=== PATIENT | male | born 1950 | race Caucasian/White ===

== ENCOUNTER 2022-10-05 10:23 | Outpatient (CLI) | payer MEDICARE, BC, SELFPAY ==
--- NOTE | 2022-10-05 09:00 | DI.RAD_ITS ---
Exam(s) XR KNEE RT 3V AP,LAT,CORRINE EXAM: XR KNEE RT 3V AP,LAT,CORRINE CLINICAL HISTORY: right knee DJD. TECHNIQUE: 2D digital imaging was performed. Three views. COMPARISON: [facility]TH[facility] KNEE SOREN 4+VIEWS from 09/26/2020 FINDINGS: There is severe narrowing of the medial femoral tibial joint space, with a [id number] appearance. There is some flattening of the medial femoral condyle. This causes varus angulation at the knee. P rominent periarticular spurring. There is a bony density seen posteriorly which could represent a lo ose body. There is also prominent spurring at the patellofemoral joint. IMPRESSION: Severe degenerative changes of the medial femoral tibial joint. DATA REPOSITORY: RADIATION DOSE DELIVERED:
--- NOTE | 2022-10-05 09:00 | DI.RAD_ITS ---
Exam(s) XR KNEE LT 3V AP,LAT,CORRINE EXAM: XR KNEE LT 3V AP,LAT,CORRINE CLINICAL HISTORY: left knee DJD. TECHNIQUE: 2D digital imaging was performed. Three views. COMPARISON: CR ORTHO KNEE SOREN 4+VIEWS from 09/26/2020 FINDINGS: There are severe degenerative changes of the medial femoral tibial joint, with a [id number] appeara nce. Prominent periarticular spurring is noted throughout. There is varus angulation. IMPRESSION: Severe degenerative changes of the medial femoral tibial joint. DATA REPOSITORY: RADIATION DOSE DELIVERED:
== END 2022-10-05 10:24 | disposition home or self-care (01) ==
LOC: DIORS 10:23
PROVIDERS: PCP Internal Medicine; Referring Provider Internal Medicine; Visit Provider Student in an Organized Health Care Education/Training Program
DX: M17.0 Bilateral primary osteoarthritis of knee
CPT/HCPCS: 20610; 73562; 99203; J1040

== ENCOUNTER → 2023-10-22 08:49 | Outpatient (BNVA) | payer MEDICARE, BC, SELFPAY | PROVIDERS: PCP Internal Medicine; Referring Provider Internal Medicine | DX: M17.11 Unilateral primary osteoarthritis, right knee (principal); M17.12 Unilateral primary osteoarthritis, left knee | CPT/HCPCS: 20610; J1010 ==

== ENCOUNTER 2023-11-24 03:01 | Outpatient (CLI) | payer MEDICARE, BC, SELFPAY ==
[2023-11-24 13:13] LABS: Abs Immature Grans 0.02 10^3/uL (0.0-0.06); Absolute Eosinophil Count 0.04 10^3/uL (0.0-0.7); Absolute Lymphocyte Count 0.54 10^3/uL (1.2-3.4); Absolute Monocyte Count 0.68 10^3/uL (0.1-0.8); Basophils % 1.8 %; Eosinophils % 0.7 %; HCT 35.9 % (40.0-50.0); HGB 12.5 g/dL (13.5-17.5); Immature Grans % 0.4 %; Lymphocytes % 9.7 %; MCH 33.8 pg (27.0-33.0); MCHC 34.8 % (32.0-36.0); MCV 97 fL (80-95); MPV 9.6 fL (8.0-11.0); Monocytes % 12.2 %; Neutrophils % 75.2 %; Platelet Count 161 10^3/uL (130-400); RDW 13.4 % (11.8-14.1); RDW-SD 47.1 fL; WBC 5.58 10^3/uL (4.4-10.8)
[2023-11-24 14:01] LABS: ALT 27 U/L (16-63); AST 23 U/L (15-37); Alkaline Phosphatase 123 U/L (46-116); Anion Gap 5.1 mmol/L (3-11); BUN 13 mg/dL (7-18); Bilirubin, Total 0.58 mg/dL (0.2-1.0); CO2 31.9 mmol/L (21.0-32.0); CREATININE 0.9 mg/dL (0.70-1.30); Chloride 103 mmol/L (98-107); Estimated GFR 89.62 (mL/min/1.73m2); Glucose 86 mg/dL (74-106); Potassium 4.1 mmol/L (3.5-5.1); Sodium 140 mmol/L (136-145); Total Protein 6.5 g/dL (6.4-8.2)
[2023-11-25 10:18] LABS: IgA <13 mg/dL (85-499); IgG 943 mg/dL (610-1616); IgM 21 mg/dL (35-242); Kappa Free Light Chain 0.72 mg/dL (0.33-1.94); Lambda Free Light Chain <0.44 mg/dL (0.57-2.63)
[2023-11-25 13:14] LABS: Albumin 63.9 % (55.8-66.1); Monoclonal Spike 4.3 % (None Seen); Monoclonal Spike g/dL 0.3 g/dL (None Seen); Total Protein 6.2 g/dL (6.3-8.2)
[2023-11-25 16:12] LABS: Comment (See Note)
== END 2023-11-24 03:02 | disposition home or self-care (01) ==
LOC: LBO 03:01
PROVIDERS: PCP Internal Medicine; Visit Provider Internal Medicine Hematology & Oncology
DX: C90.00 Multiple myeloma not having achieved remission (principal)
CPT/HCPCS: 36415; 80053; 82784; 83883; 84165; 85025

== ENCOUNTER 2023-12-01 03:46 | Outpatient (CLI) | payer MEDICARE, BC, SELFPAY ==
[2023-12-01 12:28] LABS: Abs Immature Grans 0.03 10^3/uL (0.0-0.06); Absolute Basophil Count 0.05 10^3/uL (0.0-0.2); Absolute Eosinophil Count 0.13 10^3/uL (0.0-0.7); Absolute Lymphocyte Count 0.34 10^3/uL (1.2-3.4); Absolute Monocyte Count 0.36 10^3/uL (0.1-0.8); Absolute Neutrophil Count 2.92 10^3/uL (1.2-6.7); Basophils % 1.3 %; Eosinophils % 3.4 %; HCT 36.4 % (40.0-50.0); HGB 12.3 g/dL (13.5-17.5); Immature Grans % 0.8 %; Lymphocytes % 8.9 %; MCH 33.5 pg (27.0-33.0); MCHC 33.8 % (32.0-36.0); MCV 99 fL (80-95); MPV 10.1 fL (8.0-11.0); Monocytes % 9.4 %; Neutrophils % 76.2 %; Platelet Count 122 10^3/uL (130-400); RBC 3.67 10^6/uL (4.36-5.78); RDW 13.8 % (11.8-14.1); RDW-SD 50.3 fL; WBC 3.83 10^3/uL (4.4-10.8)
[2023-12-01 13:38] LABS: ALT 25 U/L (16-63); AST 18 U/L (15-37); Albumin 3.7 g/dL (3.4-5.0); Alkaline Phosphatase 100 U/L (46-116); Anion Gap 5.1 mmol/L (3-11); BUN 12 mg/dL (7-18); Bilirubin, Total 0.66 mg/dL (0.2-1.0); CO2 32.9 mmol/L (21.0-32.0); CREATININE 0.9 mg/dL (0.70-1.30); Calcium 8.9 mg/dL (8.5-10.1); Chloride 101 mmol/L (98-107); Estimated GFR 89.62 (mL/min/1.73m2); Glucose 89 mg/dL (74-106); Potassium 4.2 mmol/L (3.5-5.1); Sodium 139 mmol/L (136-145); Total Protein 6.3 g/dL (6.4-8.2)
[2023-12-02 10:09] LABS: IgA <13 mg/dL (85-499); IgG 518 mg/dL (610-1616); IgM 21 mg/dL (35-242); Kappa Free Light Chain 0.84 mg/dL (0.33-1.94); Lambda Free Light Chain <0.44 mg/dL (0.57-2.63)
[2023-12-02 13:50] LABS: Albumin 62.5 % (55.8-66.1); Albumin g/dL 3.9 g/dL (3.6-5.2); Comment (See Note); Monoclonal Spike 4.5 % (None Seen); Monoclonal Spike g/dL 0.3 g/dL (None Seen); Total Protein 6.2 g/dL (6.3-8.2)
== END 2023-12-01 03:47 | disposition home or self-care (01) ==
LOC: LBO 03:47
PROVIDERS: PCP Internal Medicine; Visit Provider Internal Medicine Hematology & Oncology
DX: C90.00 Multiple myeloma not having achieved remission (principal)
CPT/HCPCS: 36415; 80053; 82784; 83883; 84165; 85025

== ENCOUNTER → 2024-01-18 08:28 | Outpatient (BNVA) | payer MEDICARE, BC, SELFPAY | PROVIDERS: PCP Internal Medicine; Referring Provider Internal Medicine; Visit Provider Nurse Practitioner Gerontology | DX: N40.1 Benign prostatic hyperplasia with lower urinary tract symptoms (principal); N13.8 Other obstructive and reflux uropathy; R97.20 Elevated prostate specific antigen [PSA]; C90.00 Multiple myeloma not having achieved remission | CPT/HCPCS: 51798; 81003; 99215 ==

== ENCOUNTER → 2024-02-11 10:50 | Outpatient (BNVA) | payer MEDICARE, BC, SELFPAY | PROVIDERS: PCP Internal Medicine; Referring Provider Internal Medicine | DX: M17.0 Bilateral primary osteoarthritis of knee (principal) | CPT/HCPCS: 20610; J1010 ==

== ENCOUNTER → 2024-07-18 09:27 | Outpatient (BNVA) | payer MEDICARE, BC, SELFPAY | PROVIDERS: PCP Internal Medicine; Referring Provider Internal Medicine; Visit Provider Nurse Practitioner Gerontology | DX: N40.1 Benign prostatic hyperplasia with lower urinary tract symptoms (principal); N13.8 Other obstructive and reflux uropathy; R97.20 Elevated prostate specific antigen [PSA] | CPT/HCPCS: 99214 ==

== ENCOUNTER 2024-08-22 12:44 | Outpatient (CLI) | payer MEDICARE, BC, SELFPAY ==
--- NOTE | 2024-08-22 | DI.MRI_ITS ---
Exam(s) MR ABDOMEN WO EXAM: MR ABDOMEN WO CLINICAL HISTORY: ? Gallstones, choledocholithiasis TECHNIQUE: Multiplanar multisequence MRI of the Abdomen was performed. COMPARISON: No exams were available for comparison FINDINGS: Lung bases: Unremarkable. Liver: No suspicious hepatic masses are present. There is normal signal seen in the liver. Pancreas: There is no evidence of a pancreatic mass. No peripancreatic fluid collections are seen. Gallbladder and Bile Ducts: The gallbladder is distended measuring 5.1 cm in diameter. There is no w all thickening or pericholecystic fluid. The common duct measures 1.0 cm. There is a 3 mm filling d efect centered within the common bile duct on the axial T2 images. It is not identified on the coron al images. This likely reflects a flow artifact. This is not seen on the MRCP images. Adrenals: No suspicious adrenal mass is seen. Kidneys: There are bilateral simple renal cysts. The largest is on the left kidney and measures 2.9 cm. No follow-up is recommended. No suspicious renal masses are seen. Spleen: Unremarkable. Bowel: Unremarkable. No evidence of bowel wall thickening or obstruction is seen. Aorta: Unremarkable. Soft Tissues: There is a tiny fat containing umbilical hernia. Bone: Unremarkable. Lymph Nodes: Unremarkable. IMPRESSION: 1. No definite evidence of choledocholithiasis. 2. There is a rounded low signal intensity defects seen centered in the common duct (series [id number], maribell ge [id number]). It is not seen on the MRCP images or the coronal T2 images and likely reflects a flow artifa ct. 3. Distended gallbladder. No gallbladder wall thickening or pericholecystic fluid. 4. The common duct measures 1 cm in size. No evidence of a pancreatic mass. DATA REPOSITORY:
== END 2024-08-22 13:04 ==
PROVIDERS: PCP Internal Medicine; Visit Provider Internal Medicine
DX: K80.80 Other cholelithiasis without obstruction (principal)
CPT/HCPCS: 74181

== ENCOUNTER → 2024-09-28 10:50 | Outpatient (BNVA) | payer MEDICARE, BC, SELFPAY | PROVIDERS: PCP Internal Medicine; Referring Provider Internal Medicine; Visit Provider Physician Assistant | DX: M17.0 Bilateral primary osteoarthritis of knee (principal) | CPT/HCPCS: 20610; J1010 ==

== ENCOUNTER → 2025-01-16 10:22 | Outpatient (BNVA) | payer MEDICARE, BC, SELFPAY | PROVIDERS: PCP Internal Medicine; Visit Provider Nurse Practitioner Gerontology | DX: N40.1 Benign prostatic hyperplasia with lower urinary tract symptoms (principal); N13.8 Other obstructive and reflux uropathy; R97.20 Elevated prostate specific antigen [PSA]; Z80.42 Family history of malignant neoplasm of prostate | CPT/HCPCS: 99213 ==

== ENCOUNTER → 2025-03-02 07:45 | Outpatient (BNVA) | payer MEDICARE, BC, SELFPAY | PROVIDERS: PCP Internal Medicine; Referring Provider Internal Medicine; Visit Provider Physician Assistant | DX: M17.0 Bilateral primary osteoarthritis of knee (principal) | CPT/HCPCS: 20610; J1010 ==